=== PATIENT | male | born 1955 | race Caucasian/White ===

== ENCOUNTER 2017-11-19 00:57 | Emergency (ER) | payer OTHER, BC ==
[2017-11-19 01:23] LABS: ABSOLUTE EOSINOPHILS # (AUTO) 0.2 10^3/uL (0.0-0.6); ABSOLUTE LYMPHOCYTES (AUTO) 1.7 10^3/uL (0.5-4.7); ABSOLUTE MONOCYTES (AUTO) 0.6 10^3/uL (0.1-1.4); ABSOLUTE NEUT (AUTO) 4.2 10^3/uL (1.7-8.2); BASOPHILS % (AUTO) 0.3 % (0-2); EOSINOPHILS % (AUTO) 2.3 % (0-6); HEMATOCRIT 39.7 % (37.9-51.0); HEMOGLOBIN 13.3 g/dL (13.5-17.0); LYMPHOCYTES % (AUTO) 25.4 % (13-45); MEAN CORPUSCULAR HEMOGLOBIN 30.6 pg (27.0-33.4); MEAN CORPUSCULAR HGB CONC 33.6 g/dL (32.0-36.0); MEAN CORPUSCULAR VOLUME 91 fl (80-97); MONOCYTES % (AUTO) 9.6 % (3-13); PLATELET COUNT 232 10^3/uL (150-450); RED BLOOD COUNT 4.35 10^6/uL (4.35-5.55); RED CELL DISTRIBUTION WIDTH 13.4 % (11.5-14.0); SEGMENTED NEUTROPHILS % (AUTO) 62.4 % (42-78); TOTAL CELLS COUNTED % (AUTO) 100 %; WHITE BLOOD COUNT 6.7 10^3/uL (4.0-10.5)
[2017-11-19] MEDS ORDERED: MORPHINE SULFATE IR 15 MG TABLET PO ONE (01:33)
[2017-11-19] MEDS ORDERED: KETOROLAC TROMETHAMINE INJ/PF 30 MG/1 ML SDV IV ONE (01:33)
[2017-11-19 01:35] LABS: ANION GAP 14 (5-19); BLOOD UREA NITROGEN 24 mg/dL (7-20); CALCIUM 9.6 mg/dL (8.4-10.2); CARBON DIOXIDE 22 mmol/L (22-30); CHLORIDE 104 mmol/L (98-107); GLUCOSE 99 mg/dL (75-110); POTASSIUM 3.9 mmol/L (3.6-5.0); SODIUM 139.5 mmol/L (137-145)
--- NOTE | 2017-11-19 01:35 | ER Document Report ---
ED General - General Chief Complaint: Chest Pain Stated Complaint: CHEST DISCOMFORT Time Seen by Provider: 11/19/17 01:03 Notes: Patient is a 62-year-old male with a past medical history of aortic stenosis, [id number] type 2 diabetes who presents with acute onset of right- sided chest discomfort radiating into the upper right back that started approximately 2330. Patient states he was lying down to go to bed when the pain started. He states he got up to try to move around but this did not improve the pain. Nothing worsened or triggered the pain. He states that he has a history of chest pain in the past but never to this degree of severity. Reports he had a clean cardiac catheterization in March 2016 and has no known history of coronary artery disease. He has not contacted his general doctor regarding today's concerns. He notes some associated diaphoresis, shortness of breath both which have now resolved. He did have nausea but no vomiting. - Related Data Allergies/Adverse Reactions: No Known Allergies Allergy (Unverified 11/19/17 02:43) Past Medical History - General Information source: Patient - Social History Smoking Status: Former Smoker Frequency of alcohol use: daily Drug Abuse: None Lives with: Spouse/Significant other Family History: Reviewed & Not Pertinent Patient has suicidal ideation: No Patient has homicidal ideation: No - Past Medical History Cardiac Medical History: Reports: Hx Hypercholesterolemia, Hx Hypertension Endocrine Medical History: Reports: Hx Diabetes Mellitus Type 2 Renal/ Medical History: Denies: Hx Peritoneal Dialysis Review of Systems - Review of Systems Notes: Constitutional: Negative for fever. HENT: Negative for sore throat. Eyes: Negative for visual changes. Cardiovascular: Positive for chest pain. Respiratory: Negative for shortness of breath. Gastrointestinal: Negative for abdominal pain, vomiting or diarrhea. Genitourinary: Negative for dysuria. Musculoskeletal: Negative for back pain. Skin: Negative for rash. Neurological: Negative for headaches, weakness or numbness. 10 point ROS negative except as marked above and in HPI. Physical Exam - Vital signs Vitals: Temp Pulse Resp BP Pulse Ox 98.5 F 76 21 H 143/86 H 98 11/19/17 00:58 11/19/17 00:58 11/19/17 00:58 11/19/17 00:58 11/19/17 00:58 Interpretation: Hypertensive Notes: PHYSICAL EXAMINATION: GENERAL: Appears moderately uncomfortable but in no acute distress HEAD: Atraumatic, normocephalic. EYES: Pupils equal round and reactive to light, extraocular movements intact, sclera anicteric, conjunctiva are normal. ENT: nares patent, oropharynx clear without exudates. Moist mucous membranes. NECK: Normal range of motion, supple without lymphadenopathy LUNGS: Breath sounds clear to auscultation bilaterally and equal. No wheezes rales or rhonchi. HEART: Regular rate and rhythm, 4 out of 6 systolic ejection murmur ABDOMEN: Soft, nontender, normoactive bowel sounds. No guarding, no rebound. No masses appreciated. EXTREMITIES: Normal range of motion, no pitting or edema. No cyanosis. NEUROLOGICAL: No focal neurological deficits. Moves all extremities spontaneously and on command. PSYCH: Normal mood, normal affect. SKIN: Warm, Dry, normal turgor, no rashes or lesions noted. Course - Re-evaluation Re-evalutation: 11/19/17 01:33 Presentation of chest pain in an otherwise well appearing patient. PE also seems unlikely given clinical history, absence of tachycardia or dyspnea. Wells score is 0. CXR without evidence of pneumothorax or pneumonia. No widened mediastinum. Aortic dissection also seems unlikely given history, symmetric pulses, CXR, and vitals. Blood pressures taken at the bedside myself are 141 systolic in the right and 143 in the left. Primary concern is for possible ACS. Initial EKG is normal. Patient does have the risk factor of type 2 diabetes although appears to be the picture of health on physical examination. Will obtain a troponin and then a repeat troponin 3 hours thereafter as pain started approximately 2 hours prior to arrival. 11/19/17 02:14 Patient states that his chest pain is returning after had mostly resolved after receiving nitroglycerin by EMS. His initial troponin is somewhat elevated at 0.036 and he continues to have concerning chest pain. A nitroglycerin infusion will be started, atorvastatin, clopidogrel and Lovenox will be administered. Patient has already received aspirin prior to arrival. Patient will also be given morphine as needed for pain control not obtained by nitroglycerin. If patient's pain cannot be resolved he will require transfer for ongoing chest pain in the setting of a concerning history and elevated troponin. 11/19/17 03:19 Troponin has not yet resulted. Laboratory apparently states that the troponin machine is broken and it could take another hour for the results return. Patient's pain is mostly improved at this point receiving morphine and nitroglycerin infusion. 11/19/17 03:47 Repeat troponin has continued to elevate. The patient continues to have pain 1 out of 5 on nitroglycerin infusion. I have discussed this case with her hospitalist Dr. Sparrow who has declined to accept the patient giving his ongoing pain and elevated troponin. I think this is reasonable particularly given the patient continues to have pain. I have contacted [facility] and requested transfer. 11/19/17 04:26 Patient continues to have 1 out of 5 chest pain. I have discussed with the school physical therapist at [facility] Dr. Stern who has accepted the patient in transfer. The patient is in agreement with plan, understands that he is being transferred. - Vital Signs Vital signs: Temp Pulse Resp BP Pulse Ox 98.5 F 76 18 114/68 95 11/19/17 00:58 11/19/17 00:58 11/19/17 03:35 11/19/17 03:35 11/19/17 03:35 - Laboratory Result Diagrams: 11/19/17 01:13 11/19/17 01:13 Laboratory results interpreted by me: 11/19/17 11/19/17 01:13 01:13 Hgb 13.3 L BUN 24 H Creatinine 1.27 H Est GFR (Non-Af Amer) 57 L - Diagnostic Test Radiology reviewed: Image reviewed, Reports reviewed Radiology results interpreted by me: 11/19/17 02:00 Chest x-ray: No acute infiltrate or pneumothorax - EKG Interpretation by Me Additional EKG results interpreted by me: 11/19/17 02:01 Sinus rhythm. Rate 78. No ST elevations or depressions. QTC is 429. Critical Care Note - Critical Care Note Total time excluding time spent on procedures (mins): 38 Comments: Critical care time spent on multiple reassessments of the patient given his ongoing chest pain, consultation with the hospitalist consultation with the transferring physician accepting physician, discussing care plan with the family , assessing the patient's response to treatment, review of labs and imaging. Discharge - Discharge Clinical Impression: NSTEMI (non-ST elevated myocardial infarction) Chest pain Qualifiers: Chest pain type: unspecified Qualified Code(s): R07.9 - Chest pain, unspecified Condition: Fair Disposition: [facility]
--- NOTE | 2017-11-19 02:09 | RADIOLOGY REPORT (SQ) ---
Chest single view on 11/19/2017 at 1:48 AM CLINICAL INDICATION: Chest pain COMPARISON: None FINDINGS: The lungs are clear. Cardiac, hilar and mediastinal contours are within normal limits. Pulmonary vascularity is within normal limits. No bony abnormality is noted. IMPRESSION: No active disease.
[2017-11-19] MEDS ORDERED: NITROGLYCERIN/D5W 50 MG/250 ML RTUINJ IV PRN (02:11)
[2017-11-19] MEDS ORDERED: CLOPIDOGREL BISULFATE 75 MG TABLET PO ONE (02:12)
[2017-11-19] MEDS ORDERED: ATORVASTATIN CALCIUM 80 MG TABLET PO ONE (02:13)
[2017-11-19] MEDS ORDERED: MORPHINE SULFATE 10 MG/ML INJ IV PRN (02:13)
[2017-11-19] MEDS ORDERED: ENOXAPARIN SODIUM INJ 80 MG/0.8 ML DISP.SYRIN SUBCUT SCH (02:15)
[2017-11-19 08:05] VITALS: BP 119/73
--- NOTE | 2017-11-19 08:52 | EKG REPORT ---
SEVERITY:- NORMAL ECG - SINUS RHYTHM : Confirmed by: Sybil Roy MD 19-Nov-2017 08:51:35
--- NOTE | 2017-11-19 19:48 | EKG REPORT ---
SEVERITY:- BORDERLINE ECG - SINUS RHYTHM BORDERLINE T WAVE ABNORMALITIES : Confirmed by: Sybil Roy MD 19-Nov-2017 19:46:52
== END 2017-11-19 08:26 | disposition short-term general hospital (02) ==
LOC: ER 00:57
DX: R07.9 Chest pain, unspecified (principal); E11.9 Type 2 diabetes mellitus without complications; M54.6 Pain in thoracic spine; Z87.891 Personal history of nicotine dependence; I10 Essential (primary) hypertension; I21.4 Non-ST elevation (NSTEMI) myocardial infarction
CPT/HCPCS: 93005; 99285; 96365; 96366; 36415; 85025; 80048; 84484; 71045; 93010; J2270; J3490; J1650